=== PATIENT | female | born 1970 | race Two or more races ===

== ENCOUNTER → 2020-05-26 | Outpatient (CLI) | payer MEDICARE, MEDICAID | END | disposition home or self-care (01) | LOC: XYW 12:28 | PROVIDERS: ATTEND Orthopaedic Surgery | DX: Z47.33 Aftercare following explantation of knee joint prosthesis (principal); L73.0 Acne keloid; S81.001D Unspecified open wound, right knee, subsequent encounter; M24.561 Contracture, right knee; T84.498D Other mechanical complication of other internal orthopedic devices, implants and grafts, subsequent encounter; Z96.651 Presence of right artificial knee joint; X58.XXXD Exposure to other specified factors, subsequent encounter | CPT/HCPCS: 73560; 78315; A9503 ==